=== PATIENT | male | born 1990 | race Caucasian/White ===

== ENCOUNTER 2017-07-21 17:40 | Emergency (ER) | payer SELFPAY ==
[~2017-07-21] VITALS: Ht 182.9 cm; Wt 74.0 kg
[2017-07-21 17:45] VITALS: BP 123/84
== END 2017-07-21 18:52 | disposition home or self-care (01) ==
LOC: ED 18:46
DX: S83.92XA Sprain of unspecified site of left knee, initial encounter (principal); X58.XXXA Exposure to other specified factors, initial encounter; Y93.89 Activity, other specified; Y92.89 Other specified places as the place of occurrence of the external cause; Y99.8 Other external cause status
CPT/HCPCS: 29505; 99284

== ENCOUNTER 2018-02-18 07:23 | Emergency (ER) | payer MEDICAID ==
[~2018-02-18] VITALS: Ht 182.9 cm; Wt 75.0 kg
[2018-02-18 07:33] VITALS: BP 139/101
== END 2018-02-18 07:51 | disposition home or self-care (01) ==
LOC: ED 07:45
DX: B34.9 Viral infection, unspecified (principal)
CPT/HCPCS: 99281

== ENCOUNTER 2018-09-11 01:36 | Emergency (ER) | payer MEDICAID ==
[~2018-09-11] VITALS: Ht 182.9 cm; Wt 71.5 kg
[2018-09-11 01:38] VITALS: BP 128/80
--- NOTE | 2018-09-11 02:09 | NUR ---
URINE SPECIMEN COLLECTED AND SENT, PT IN SECURE ROOM AND BELONGINGS SECURED.
[2018-09-11 02:17] LABS: BASOPHILS # (AUTO) 0.03 x10^3/uL (0-0.1); BASOPHILS % (AUTO) 0 % (0-1); EOSINOPHILS # (AUTO) 0.09 x10^3/uL (0-0.4); EOSINOPHILS % (AUTO) 1 % (1-7); LYMPHOCYTES # (AUTO) 2.09 x10^3/uL (1-3.4); LYMPHOCYTES % (AUTO) 27 % (22-44); MD NO; MEAN CORPUSCULAR HEMOGLOBIN 29.7 pg (27.5-34.5); MEAN CORPUSCULAR HGB CONC 32.5 g/dL (33.2-36.2); MEAN CORPUSCULAR VOLUME 91.5 fL (81-97); MEAN PLATELET VOLUME 8.5 fL (7.4-10.4); MONOCYTES # (AUTO) 0.43 x10^3/uL (0.2-0.8); MONOCYTES % (AUTO) 6 % (2-9); NEUTROPHILS # (AUTO) 5.22 x10^3/uL (1.8-6.8); NEUTROPHILS % (AUTO) 66 % (42-75); PLATELET COUNT 199 x10^3/uL (130-400); RED BLOOD COUNT 5.02 x10^6/uL (4.38-5.82); RED CELL DISTRIBUTION WIDTH 13.6 % (9.4-14.8)
[2018-09-11 02:30] LABS: ALANINE AMINOTRANSFERASE 24 U/L (12-78); ALBUMIN 4.4 g/dL (3.4-5.0); ANION GAP 8 mmol/L (5-15); CALCIUM 8.9 mg/dL (8.5-10.1); CHLORIDE 105 mmol/L (98-107); SALICYLATE LEVEL 2.5 mg/dL (2.8-20.0)
[2018-09-11 02:32] LABS: AMPHETAMINE SCREEN, URINE Negative (Negative); BARBITURATE SCREEN, URINE Negative (Negative); BENZODIAZEPINE SCREEN, URINE Negative (Negative); CANNABINOID SCREEN, URINE Positive (Negative); COCAINE SCREEN, URINE Negative (Negative); METHADONE SCREEN, URINE Negative (Negative); OPIATE SCREEN, URINE Negative (Negative)
[2018-09-11 02:32] LABS: ALKALINE PHOSPHATASE 94 U/L (45-117); BILIRUBIN,TOTAL 0.3 mg/dL (0.2-1.0); CREATININE 1.04 mg/dL (0.7-1.3); TOTAL PROTEIN 7.6 g/dL (6.4-8.2)
--- NOTE | 2018-09-11 02:52 | NUR ---
PT RESTING IN [facility] AT THIS TIME;
--- NOTE | 2018-09-11 04:07 | NUR ---
MAVERICK RN: PACKET FAXED TO [facility]
--- NOTE | 2018-09-11 04:28 | NUR ---
GORDO FROM [facility] CALLED FOR REPORT. FACILITY ATTEMPTING TO FIND ADMITTING DR, AND PER GORDO, THEY WILL CALL US BACK TO ACCEPT TRANSFER OF PT.
--- NOTE | 2018-09-11 04:31 | NUR ---
RAMONA FROM [facility] CALLED FOR REPORT OF PT. PER RAMONA, PT WILL BE ACCEPTED ONCE ADMITTING PHYSICIAN REVIEWS CHART. [facility] WILL CALL US SOON PT IS ACCEPTED.
--- NOTE | 2018-09-11 04:51 | NUR ---
PT ACCEPTED AT [facility], ACCEPTING PHYSICIAN DR. SORIANO. GORDO, RN
--- NOTE | 2018-09-11 04:52 | NUR ---
PT WITH MEDICAID [place] SHIELDS. SPOKE TO DESIRE AT [facility] WHOM STATES PT DOES NOT NEED [facility] ASSESSMENT PRIOR TO TRANSPORT. SHE STATES THEY ARE READY FOR THE PATIENT NOW. SPOKE WITH VINCE FROM [facility] AND TRANSPORT SET UP. FAXED REQUEST TO [facility]. SPOKE WITH JAGUAR FROM [facility] WHOM [facility] WILL CALL US BACK WITH AN ETA ONCE THEY HEAR FROM [facility].
--- NOTE | 2018-09-11 05:20 | NUR ---
PT SIGNED TRANSFER PAPERWORK. PT VERBALIZES UNDERSTANDING OF TRANSFER TO [facility]. PT DENIES ANY NEEDS AT THIS TIME.
--- NOTE | 2018-09-11 06:27 | NUR ---
PT ASLEEP IN [facility] AT THIS TIME; DAVID. PT IS BEING MONITORED VIA ROOM [facility] AND DIRECT OBSERVATION.
--- NOTE | 2018-09-11 07:02 | NUR ---
ASSUMED CARE OF PT. REPORT RECIEVED AT BEDSIDE. PT SLEEPING IN BED AT THIS TIME. NO EVIDENCE OF DISTRESS. SITTER AT BEDSIDE.
--- NOTE | 2018-09-11 07:39 | NUR ---
REPORT GIVEN TO [facility]. BELONGINGS RETURNED TO PT ON D/C
== END 2018-09-11 07:48 ==
LOC: ED 02:17 → EDIP 03:32 → UNDOADMIN 03:32 → ED 07:48
DX: F32.9 Major depressive disorder, single episode, unspecified (principal); Z59.0 Homelessness
CPT/HCPCS: 36415; 80053; 80307; 85025; 99285

== ENCOUNTER 2018-09-23 10:37 | Emergency (ER) | payer MEDICAID ==
[~2018-09-23] VITALS: Ht 182.9 cm; Wt 75.0 kg
--- NOTE | 2018-09-23 10:42 | NUR ---
PATIENT IS UNDER SUPERVISION OF [facility]. SITTER IS WITH PATIENT AT THE BEDSIDE.
[2018-09-23 10:56] VITALS: BP 113/74
--- NOTE | 2018-09-23 10:56 | NUR ---
PA-C IS AT THE BEDSIDE TO ASSESS
--- NOTE | 2018-09-23 11:41 | NUR ---
UNABLE TO PROVIDE SPLINTING DUE TO RESTRICTIONS OF HIS HOUSING FACILITY.
--- NOTE | 2018-09-23 11:53 | NUR ---
PT RELEASED UNDER THE SUPERVISION OF [facility]. PER THE STAFF THERE (MUNA), IT IS OK FOR THIS PT TO BE D/C'D BY WAY OF [facility].
== END 2018-09-23 11:54 | disposition home or self-care (01) ==
LOC: ED 11:03
DX: S62.344A Nondisplaced fracture of base of fourth metacarpal bone, right hand, initial encounter for closed fracture (principal); K21.9 Gastro-esophageal reflux disease without esophagitis; F32.9 Major depressive disorder, single episode, unspecified; Z87.891 Personal history of nicotine dependence; Y04.0XXA Assault by unarmed brawl or fight, initial encounter; Y93.89 Activity, other specified; Y92.89 Other specified places as the place of occurrence of the external cause; Y99.8 Other external cause status
CPT/HCPCS: 99283

== ENCOUNTER 2018-10-09 19:02 | Emergency (ER) | payer MEDICAID ==
[~2018-10-09] VITALS: Ht 182.9 cm; Wt 80.5 kg
[2018-10-09 19:12] VITALS: BP 122/66
--- NOTE | 2018-10-09 19:48 | NUR ---
PT HERE STATING THAT HE WANTS TO GO SUICIDE BY PHOTOGRAMMETRIC TECH. ROOM SECURED WITH W/ PSYCH [employer] BELONGINGS SECURED SITTER AT DOORWAY
--- NOTE | 2018-10-09 19:57 | NUR ---
SPOKE WITH [facility] WHOM STATES PT HAS RAN OUT OF HIS INSURANCE BENEFITS AND THEY CANNOT ACCEPT HIM BACK. INFORMED. SW TO SEE PT.
--- NOTE | 2018-10-09 20:00 | NUR ---
LEAD RAMP AGENT SPENT FURTHER TIME WITH PATIENT. LEAD RAMP AGENT ABLE TO DETERMIN THAT PATIENT USING "[facility] WORDS TO GET A PLACE TO STAY UNTIL FRIDAY. I ACTUALLY DON'T WANT TO KILL MYSELF" LEAD RAMP AGENT BELIEVES THAT PATIENT IS NOT A SUICIDE RISK/PROVIDER AGREEABLE
--- NOTE | 2018-10-09 20:15 | NUR ---
sw at bedside- reviewed available options. Sw/patient reached agreement to assist w/ filling meds-nursing home until [facility] able to help w/ housing on friday.
--- NOTE | 2018-10-09 20:33 | NUR ---
Patient/Caregiver given discharge instructions and they have confirmed that they understand the instructions. Patient ambulatory with steady gait.
== END 2018-10-09 20:37 | disposition home or self-care (01) ==
LOC: ED 20:31
DX: F32.9 Major depressive disorder, single episode, unspecified (principal); Z76.0 Encounter for issue of repeat prescription; Z59.0 Homelessness
CPT/HCPCS: 99283

== ENCOUNTER 2019-03-06 00:31 | Emergency (ER) | payer MEDICAID, OTHER ==
[~2019-03-06] VITALS: Ht 182.9 cm; Wt 81.0 kg
[2019-03-06 00:33] VITALS: BP 117/80
== END 2019-03-06 01:56 | disposition home or self-care (01) ==
LOC: ED 01:50
DX: S01.111A Laceration without foreign body of right eyelid and periocular area, initial encounter (principal); F12.10 Cannabis abuse, uncomplicated; F10.10 Alcohol abuse, uncomplicated; K21.9 Gastro-esophageal reflux disease without esophagitis; Z72.89 Other problems related to lifestyle; Y08.89XA Assault by other specified means, initial encounter; Y93.89 Activity, other specified; Y92.89 Other specified places as the place of occurrence of the external cause; Y99.8 Other external cause status; Y90.9 Presence of alcohol in blood, level not specified
CPT/HCPCS: 12051; 99284

== ENCOUNTER 2019-11-13 16:56 | Emergency (ER) | payer MEDICAID ==
[~2019-11-13] VITALS: Ht 182.9 cm; Wt 68.2 kg
--- NOTE | 2019-11-13 17:30 | NUR ---
LATE NOTE ENTRY DUE TO PT CARE. PT PRESENTS TO ED BY EMS FROM A LOCAL BAR AFTER HIS CO-WORKERS CALLED BECAUSE HE WAS DRINING AND THEN SLUMPED OVER AND WAS NOT RESPONDING. PT MAINTAINS AIRWAY AND IS 97% ON ROOM AIR. PT CONNECTED TO REMOTELY OPERATED VEHICLE, NIBP CUFF, AND PULSE OX MONITOR. BEDRAILS UP X 2 AND CALL LIGHT WITHIN REACH. PT STATES TO NURSE SI AND PMH OF SI. PT STATES, "LIFE IS A SHIT HOLE...LOOK AT MY WRISTS..." WHEN PATIENT ASKED ABOUT SI AND ATTEMPTS. ED PA AWARE.
[2019-11-13 17:56] LABS: BASOPHILS # (AUTO) 0.02 x10^3/uL (0-0.1); BASOPHILS % (AUTO) 0 % (0-1); EOSINOPHILS # (AUTO) 0.06 x10^3/uL (0-0.4); EOSINOPHILS % (AUTO) 1 % (1-7); LYMPHOCYTES # (AUTO) 1.38 x10^3/uL (1-3.4); LYMPHOCYTES % (AUTO) 25 % (22-44); MD NO; MEAN CORPUSCULAR HEMOGLOBIN 30.6 pg (27.5-34.5); MEAN CORPUSCULAR HGB CONC 34.4 g/dL (33.2-36.2); MEAN CORPUSCULAR VOLUME 89.1 fL (81-97); MEAN PLATELET VOLUME 8.8 fL (7.4-10.4); MONOCYTES # (AUTO) 0.32 x10^3/uL (0.2-0.8); MONOCYTES % (AUTO) 6 % (2-9); NEUTROPHILS # (AUTO) 3.82 x10^3/uL (1.8-6.8); NEUTROPHILS % (AUTO) 68 % (42-75); PLATELET COUNT 163 x10^3/uL (130-400); RED CELL DISTRIBUTION WIDTH 12.8 % (9.4-14.8)
[2019-11-13 18:04] LABS: ALBUMIN 3.9 g/dL (3.4-5.0); ANION GAP 8 mmol/L (5-15); CALCIUM 8.4 mg/dL (8.5-10.1); CHLORIDE 111 mmol/L (98-107); CREATININE 1.01 mg/dL (0.7-1.3); SALICYLATE LEVEL 1.9 mg/dL (2.8-20.0)
--- NOTE | 2019-11-13 18:48 | NUR ---
Pt scores high on [place] Suicide Screen with nurse assessment. Pt also has 0.226 Ethyl Alcohol level and is being monitored in a camera room by ED staff. Pt remains asleep on left lateral side with unlabored respirations with even chest rise and fall. EDMD aware. Pt to be re-evaluated upon sobriety. Pt is connected to NIBP cuff, continous pulse ox, and quality assurance monitor chassis. Bedrails up x 2 and call light within reach.
--- NOTE | 2019-11-13 19:01 | NUR ---
2 bags of pt belongings labled and placed in ED locker for safe keeping. Room secured for SI/HI. Pt remains connected to NIBP cuff, continous pulse ox monitor, and patient monitor.
--- NOTE | 2019-11-13 19:08 | NUR ---
REPORT FROM YARELY VARGAS. PT CARE RESPONSIBILITIES ASSUMED.
--- NOTE | 2019-11-13 19:08 | NUR ---
LATE NOTE ENTRY DUE TO PT CARE. Pt reports to nurse that he has a "drinking problem...has been hospitalized in past from withdrawal...has had seizures with alcohol withdrawal...".
[2019-11-13 19:09] LABS: AMPHETAMINE SCREEN, URINE Negative (Negative); BARBITURATE SCREEN, URINE Negative (Negative); BENZODIAZEPINE SCREEN, URINE Negative (Negative); CANNABINOID SCREEN, URINE Positive (Negative); COCAINE SCREEN, URINE Negative (Negative); METHADONE SCREEN, URINE Negative (Negative); OPIATE SCREEN, URINE Negative (Negative)
--- NOTE | 2019-11-13 19:09 | NUR ---
Provided bedside report to YARELY Tesfaye. All questions answered. YARELY Tesfaye to assume care of pt at this time.
--- NOTE | 2019-11-13 20:35 | NUR ---
pt continues resting in bed, respirations even and unlabored. nad noted.
--- NOTE | 2019-11-14 01:39 | NUR ---
SOC CALLED AND NEW CONSULT INITIATED. [id number] BOT PLACED IN PATIENTS ROOM.
--- NOTE | 2019-11-14 02:31 | NUR ---
PT RESTING IN BED, NAD NOTED. DENIES ANY NEEDS OR CONCERNS.
[2019-11-14 02:38] VITALS: BP 104/59
== END 2019-11-14 03:07 | disposition home or self-care (01) ==
LOC: ED 11-14 02:30
DX: F10.120 Alcohol abuse with intoxication, uncomplicated (principal); F41.9 Anxiety disorder, unspecified; F32.9 Major depressive disorder, single episode, unspecified; K21.9 Gastro-esophageal reflux disease without esophagitis; F17.210 Nicotine dependence, cigarettes, uncomplicated; Y90.9 Presence of alcohol in blood, level not specified
CPT/HCPCS: 36415; 80048; 80307; 82040; 85025; 93005; 99284; 99406